=== PATIENT | male | born 1950 | race Caucasian/White ===

== ENCOUNTER → 2019-11-11 | Outpatient (CLI) | payer MEDICARE ==
[~2019-11-11] MED LIST: ALBU90OI61 INH; ASPI325EC PO; ATOR40TA PO; CARV25 PO; CARV6.25 PO; CHOL10002 PO; CLON.5 PO; CYCL10 PO; FISH1000 PO; FURO20 PO; HYDACE5; LEVO750 PO; LOSA25 PO; MULVITMIND PO; NAPR550 PO; NIAC500 PO; OXYACE5T PO; POTA10T PO; POTCHL10ER PO; PRED10 PO; Prednisone20 MG PO; RXCYCL10 PO; Ventolin Soln3 ML INH; WARF2 PO; WARF2.5; Zithromax250 MG PO
== END | disposition home or self-care (01) ==
LOC: LAB 12:00 → LAB SHORT 12:00
DX: D48.5 Neoplasm of uncertain behavior of skin (principal)
CPT/HCPCS: 88305

== ENCOUNTER 2021-07-06 07:07 | Day surgery (SDC) | payer OTHER, MEDICARE ==
[~2021-07-06] VITALS: Ht 170.2 cm; Wt 131.0 kg
[~2021-07-06 07:07] MED LIST changes: +ELIQUIS5 M2 PO; +METF500 PO
--- NOTE | 2021-07-06 10:29 | NUR ---
PT PREVIOUSLY BROUGHT BACK TO RECOVERY ROOM POST IMPLANT TO LEFT SIDE UPPER CHEST. SITE APPEARED TO BE SWOLLLEN, ICE PACK APPLIED. PT APPEARED TO BE SLEEPING WITH EYES CLOSED. DRESSING TO INCISION SITE CLEAN, DRY, AND INTACT. FAMILY BROUGHT TO BEDSIDE FOR DISCUSSION WITH [facility] FOR INSTRUCTIONS RELATED TO HOME PACEMAKER EQUIPMENT.
--- NOTE | 2021-07-06 11:30 | NUR ---
DR LEONARD TO BEDSIDE TO SPEAK WITH PATIENT ABOUT PLAN OF CARE AND DISCHARGE INSTRUCTIONS. PT VERBALIZED UNDERSTANDING. NO NEEDS AT THIS TIME. CALL LIGHT IN REACH.
--- NOTE | 2021-07-06 12:30 | NUR ---
ICE PACK PLACED BACK OVER INCISION SITE AFTER PT REPOSITIONED SELF ON GURNEY. PROVIDED WITH COFFEE, DENIES WANTING FOOD AT THIS TIME. LEFT ARM REMAINS OUT OF SLING AT THIS TIME. PACEMAKER INCISION SITE REMAINS SOFT NON TENDER WITH NO BLEEDING OR OOZING NOTED. VSS. CALL LIGHT REMAINS AT BEDSIDE.
--- NOTE | 2021-07-06 13:06 | NUR ---
CLINDAMYCIN STARTED ORDERED. PT AOX4. TOLERATES PO FLUIDS WITH NO DIFFICULTIES. DENIES PAIN. VSS. AWAITING ARRIVAL OF PT'S TO DISCUSS DISCHARGE INSTRUCTIONS. DRESSING REMAINS C/D/I OVER INCISION SITE ON LEFT UPPER CHEST. CALL LIGHT IN REACH.
--- NOTE | 2021-07-06 13:45 | NUR ---
PT DRESSED WITH ASSISTANCE, SITE UNCHANGED; IV REMOVED-CANNULA INTACT. PT'S L ARM PLACED IN SLING PER DR LEONARD.
--- NOTE | 2021-07-06 14:00 | NUR ---
PT AND RECEIVED DISCHARGE INSTRUCTIONS, MED LIST AND AFTER CARE INSTRUCTIONS; VERBALIZED GOOD UNDERSTANDING. PT LEFT FACILITY VIA W/C, CONDITION STABLE.
== END 2021-07-06 14:00 | disposition home or self-care (01) ==
LOC: MHTC 07:07
DX: I49.5 Sick sinus syndrome (principal); I48.19 Other persistent atrial fibrillation; Z79.01 Long term (current) use of anticoagulants; I10 Essential (primary) hypertension; Z85.46 Personal history of malignant neoplasm of prostate
CPT/HCPCS: 33207; 71046; 99152; 99153; C1786; C1898; J1580; J1644; J2250; J3010; J3370; J7030; J7040; Q9967

== ENCOUNTER 2022-06-15 10:35 | Inpatient (IN) | payer OTHER ==
[~2022-06-15] VITALS: Ht 170.2 cm; Wt 128.7 kg
[2022-06-15 11:23] LABS: BASOPHILS ABSOLUTE AUTO 0.04 K/mm3 (0.00-0.23); BASOPHILS PERCENT AUTO 1 % (0-2); EOSINOPHILS ABSOLUTE AUTO 0.06 K/mm3 (0.00-0.68); EOSINOPHILS PERCENT AUTO 1 % (0-6); Hematocrit 37.2 % (37.0-53.0); Hemoglobin 11.9 g/dL (13.5-17.5); IMMATURE GRAN ABSOLUTE AUTO 0.02 K/mm3 (0.00-0.10); IMMATURE GRAN PERCENT AUTO 0 % (0-1); LYMPHOCYTES ABSOLUTE AUTO 0.53 K/mm3 (0.84-5.20); LYMPHOCYTES PERCENT AUTO 6 % (21-46); MONOCYTES ABSOLUTE AUTO 1.48 K/mm3 (0.16-1.47); MONOCYTES PERCENT AUTO 18 % (4-13); Mean Corpuscular Volume 91 fL (80-100); Mean Platelet Volume 12.4 fL (9.1-12.4); NEUTROPHILS ABSOLUTE AUTO 6.34 K/mm3 (1.96-9.15); NEUTROPHILS PERCENT AUTO 75 % (41-73); Platelet Count 123 K/mm3 (150-400); RDW Coefficient Variation 14.2 % (11.7-14.2); RDW Standard Deviation 47.4 fL (35.1-46.3); White Blood Cell Count 8.47 K/mm3 (4.00-11.30)
[2022-06-15 11:40] LABS: Albumin, Blood 3.4 g/dL (3.4-5.0); Albumin/Globulin Ratio 1.1 (0.8-1.8); Bun/Creatinine Ratio 20.6 (12.0-20.0); C-REACTIVE PROTEIN, EXT RANGE 4.97 mg/dL (0.000-0.300); Calcium, Blood 9.4 mg/dL (8.5-10.1); Creatinine, Blood 1.55 mg/dL (0.60-1.20); Globulin, Blood 3.2 g/dL (2.2-4.0); Potassium, Blood 4.1 mmol/L (3.5-5.5); Total Protein, Blood 6.6 g/dL (6.4-8.2)
[2022-06-15] MEDS ORDERED: VITAMIN D5000 UNIT PO (16:32)
--- NOTE | 2022-06-15 16:35 | NUR ---
MED REC NOTE PT WILL BRING COMPLETE LIST OF MEDICATIONS INCLUDING CHEMO MEDICATIONS FROM HOME TOMORROW ON 06/16/22.
--- NOTE | 2022-06-15 18:06 | NUR ---
ADMIT/SHIFT SUMMARY PT ARRIVED TO PCU APPROX 1510 AND WAS A SLIDER TRANSFER. VSS, SPO2 MAINTIANED >95% VIA RA, HR NOTED TO BE SUSTAINING IN 120'S AND THEN INCREASED TO 120-140'S. SBP 90-100 W/ MAP 70-80'S, LR BOLUS GIVEN BY THIS RN PER EMAR ORDERS, LUNGS WERE CLEAR/DIM. SEE EMAR FOR HR MANAGEMENT. HR IS NOW AFIB SUSTAINING IN 110-120'S. PT MINA AT BEDSIDE UPON ADMISSION. PT IS BLIND IN BOTH EYES THEREFORE NEEDS ASSISTANCE FOR CERTAIN ADL'S FROM . PAIN REPORTED IN R FOOT DUE TO CELLULITIS. R PINKY TOE NOTED TO BE RED, R FOOT IS SWOLLEN, SEE CHART FOR PHOTOS. PT DENIED NEED TO ELEVATE FOOT ON PILLOW. LR NOW INFUSING PER EMAR ORDERS IN R AC. PER PT REPORT, HE IS CURRENTLY RECIEVING CHEMO TREATMENT W/ DR. JJ, LAST CHEMO DATE 06/07/2022. HE HAS REPORTED GENERALIZED WEAKNESS THAT HAS RECENTLY INCREASED DUE TO CHEMO TREATMENTS. PT DOES NOT BEAR WEIGHT ON R FOOT DUE TO PAIN. PT IS CONTINENT AND UTILIZES BEDSIDE URINAL TO VOID. WILL CONTINUE TO MONITOR UNTIL REPORT GIVEN TO ONCOMING RN.
--- NOTE | 2022-06-16 00:26 | NUR ---
PHYSICIAN COMMUNICATION CONTACTED ECLECTIC DOCTOR RESIDENT DR MCCARTHY TO INFORM HER THAT THE PATIENT IS CURRENTLY IN RAPID AFIB IN THE 120'S-140'S DESPITE RECEIVING 3 DOSES IV LOPRESSOR. RELAYED PATIENT'S MOST RECENT BLOOD PRESSURE. DR MCCARTHY TO PUT IN ORDERS.
[2022-06-16 04:10] LABS: BASOPHILS ABSOLUTE AUTO 0.04 K/mm3 (0.00-0.23); BASOPHILS PERCENT AUTO 0 % (0-2); EOSINOPHILS ABSOLUTE AUTO 0.06 K/mm3 (0.00-0.68); EOSINOPHILS PERCENT AUTO 1 % (0-6); Hematocrit 36.1 % (37.0-53.0); Hemoglobin 11.6 g/dL (13.5-17.5); IMMATURE GRAN ABSOLUTE AUTO 0.05 K/mm3 (0.00-0.10); IMMATURE GRAN PERCENT AUTO 1 % (0-1); LYMPHOCYTES ABSOLUTE AUTO 0.58 K/mm3 (0.84-5.20); LYMPHOCYTES PERCENT AUTO 6 % (21-46); MONOCYTES ABSOLUTE AUTO 1.79 K/mm3 (0.16-1.47); MONOCYTES PERCENT AUTO 18 % (4-13); Mean Corpuscular HGB 29.4 pg (26.0-34.0); Mean Corpuscular HGB Conc 32.1 g/dL (31.5-36.5); Mean Corpuscular Volume 92 fL (80-100); Mean Platelet Volume 12.4 fL (9.1-12.4); NEUTROPHILS PERCENT AUTO 74 % (41-73); Platelet Count 126 K/mm3 (150-400); RDW Coefficient Variation 14.2 % (11.7-14.2); RDW Standard Deviation 48.3 fL (35.1-46.3); Red Blood Cell Count 3.94 M/mm3 (4.30-5.90); White Blood Cell Count 9.82 K/mm3 (4.00-11.30)
[2022-06-16 04:33] LABS: Albumin, Blood 3.3 g/dL (3.4-5.0); Bilirubin, Total 2.5 mg/dL (0.1-1.0); Bun/Creatinine Ratio 20.8 (12.0-20.0); Calcium, Blood 9.6 mg/dL (8.5-10.1); Creatinine, Blood 1.44 mg/dL (0.60-1.20); Globulin, Blood 3.4 g/dL (2.2-4.0); Magnesium, Blood 1.8 mg/dL (1.6-2.4); Total Protein, Blood 6.7 g/dL (6.4-8.2)
--- NOTE | 2022-06-16 06:16 | NUR ---
SHIFT SUMMARY PATIENT ALERT AND ORIENTED X4. MEDICATED PER EMAR FOR PAIN. R FOOT CONTINUES TO BE RED WITH 2+ EDEMA PRESENT. PATIENT HAS HAD NO COMPLAINTS OF SHORTNESS OF BREATH, LUNG SOUNDS CLEAR. PATIENT HAD A 7 BEAT RUN OF V-TACH AT 2314. PATIENT STARTED ON CARDIZEM DRIP AFTER HIS HEART RATE DID NOT RESPOND TO IV METOPROLOL PUSH. HEART CURRENTLY AFIB 90'S - 100'S, CARDIZEM DRIP CURRENTLY RUNNING AT 5. BLOOD PRESSURE STABLE. WILL CONTINUE TO MONITOR. CALL LIGHT WITHIN REACH.
--- NOTE | 2022-06-16 10:01 | NUR ---
CARE ASSUMPTION This RN assumed care at 0700. vital signs stable. tele afib 100s. spo2 >95% on room air. patient is alert and oriented x4. patient reports no pain, unless touching the right foot with cellulitis. patient reports no chest pain/pressure. patient reports no shortness of breath. see shift assessment for further detials. patient uses call light appropriately to make needs known. plan of care is up to date. call light within reach.
[2022-06-16] MEDS ORDERED: CALQUENCE100 M1 PO (10:40)
[2022-06-16] MEDS ORDERED: Flomax0.4 MG PO (10:41)
[2022-06-16] MEDS ORDERED: MYRBETRIQ25 MG PO (10:42)
--- NOTE | 2022-06-16 13:03 | NUR ---
shift summary this rn gave report to cathy pollack. patient neuro remains intact. no acute changes. patient sitting in chair with family and friends at bedside. call light within reach.
--- NOTE | 2022-06-16 21:04 | NUR ---
PHYSICIAN COMMUNICATION CONTACTED DOG BREEDER RESIDENT, DR MCCARTHY, TO NOTIFY HER THAT THE PATIENT'S HEART RATE HAS BEEN AVERAGING IN THE MID 120'S ON TELE AND HAS BEEN SLOWLY TRENDING UP THE EVENING PROGRESSES. INFORMED HER THAT THE PATIENT'S BLOOD PRESSURE WAS 100 SYSTOLIC ON THE R ARM AND IN THE 80'S ON THE LEFT ARM AND THAT ACCORDING TO THE PARAMETERS OF BOTH THE PATIENT'S PO AND IV METOPROLOL THIS RN WAS CURRENTLY UNABLE TO TREAT THE PATIENT FOR HIS HEART RATE. DR MCCARTHY SAID IT WAS OKAY TO ADMINISTER THE PO METOPROLOL.
[2022-06-17 04:04] LABS: BASOPHILS ABSOLUTE AUTO 0.04 K/mm3 (0.00-0.23); BASOPHILS PERCENT AUTO 0 % (0-2); EOSINOPHILS ABSOLUTE AUTO 0.05 K/mm3 (0.00-0.68); EOSINOPHILS PERCENT AUTO 1 % (0-6); Hematocrit 31.9 % (37.0-53.0); Hemoglobin 10.4 g/dL (13.5-17.5); IMMATURE GRAN ABSOLUTE AUTO 0.04 K/mm3 (0.00-0.10); IMMATURE GRAN PERCENT AUTO 0 % (0-1); LYMPHOCYTES ABSOLUTE AUTO 0.55 K/mm3 (0.84-5.20); LYMPHOCYTES PERCENT AUTO 6 % (21-46); MONOCYTES ABSOLUTE AUTO 1.73 K/mm3 (0.16-1.47); MONOCYTES PERCENT AUTO 18 % (4-13); Mean Corpuscular HGB 29.1 pg (26.0-34.0); Mean Corpuscular HGB Conc 32.6 g/dL (31.5-36.5); Mean Corpuscular Volume 89 fL (80-100); Mean Platelet Volume 12.4 fL (9.1-12.4); NEUTROPHILS ABSOLUTE AUTO 7.23 K/mm3 (1.96-9.15); NEUTROPHILS PERCENT AUTO 75 % (41-73); Platelet Count 126 K/mm3 (150-400); RDW Coefficient Variation 14.1 % (11.7-14.2); RDW Standard Deviation 46.1 fL (35.1-46.3); Red Blood Cell Count 3.58 M/mm3 (4.30-5.90); White Blood Cell Count 9.64 K/mm3 (4.00-11.30)
[2022-06-17 04:24] LABS: Bun/Creatinine Ratio 19.9 (12.0-20.0); Calcium, Blood 9.4 mg/dL (8.5-10.1); Creatinine, Blood 1.51 mg/dL (0.60-1.20); Potassium, Blood 3.9 mmol/L (3.5-5.5)
--- NOTE | 2022-06-17 04:58 | NUR ---
PHYSICIAN COMMUNICATION CONTACTED [employer] SECRETARY RESIDENT DR MCCARTHY AND NOTIFIED HER THAT THE PATIENT'S HEART RATE IS AVERAGING AROUND 130 ON TELE AFTER RECEIVING SCHEDULED PO METOPROLOL, AND THAT THE PATIENT RECEIVED TWO DOSES IV METOPROLOL WHICH WERE INEFFECTIVE. MOST RECENT BLOOD PRESSURE 100/72. NO NEW ORDERS GIVEN, TO CONTINUE TO MONITOR THE PATIENT AND CALL BACK IF THE PATIENT'S HEART RATE STARTS SUSTAINING HIGHER.
--- NOTE | 2022-06-17 06:43 | NUR ---
SHIFT SUMMARY PATIENT ALERT AND ORIENTED X4. REDNESS AND SWELLING IN PATIENT'S RIGHT FOOT DECREASING. SPO2 >90% ON ROOM AIR, NO COMPLAINTS OF SHORTNESS OF BREATH. BLOOD PRESSURE STABLE. HEART RATE CURRENTLY AVERAGING AFIB IN THE 130'S. WILL CONTINUE TO MONITOR. CALL LIGHT WITHIN REACH.
--- NOTE | 2022-06-17 08:39 | NUR ---
CARE ASSUMPTION This RN assumed care at 0700. vital signs stable. blood pressure hypotensive. This RN called MD to inform MD of blood pressure systolic not within the parameters for the oral metoprolol this AM, per MD it was okay to give due to heart rate sustaining in the 130s. This RN informed MD that heart rate touching into the 150s and then goes back into 130s. No new orders at this time. Patient is alert and oriented x4. tele afib 130s-150s. patient has a fever this AM and received tylenol per emar. See vital signs section. patient reports no shortness of breath. patient reports no chest pain/pressure. patient reports no pain. Patient at bedside this AM. This RN updated them on plan of care and provided education on morning medications. Patient and verbalized understanding. See shift assessment for further detials. Plan of care is up to date. call light within reach. Physical therapy in to see patient and patient refused to work with therpay. This RN will encourage range of motion exercises in bed.
--- NOTE | 2022-06-17 17:42 | NUR ---
SHIFT SUMMARY Patient neuro remains intact. vital signs stable. Blood pressure soft at times. Patient received iv digoxin per emar orders for heart rate control. heart rate is anywhere from 80-110s. tele in place afib. family has been at bedside most of the day, and left this evening to go home. physical therapy worked with patient this afternoon. lift patient per physical therapy, see assessment. no acute changes. call light within reach and bed in lowest position.
[2022-06-18 04:31] LABS: Anion Gap 5 mmol/L (6-16); Blood Urea Nitrogen 31 mg/dL (8-24); Bun/Creatinine Ratio 19.6 (12.0-20.0); CO2, Blood 26 mmol/L (21-32); Calcium, Blood 9.4 mg/dL (8.5-10.1); Chloride, Blood 105 mmol/L (98-108); Creatinine, Blood 1.58 mg/dL (0.60-1.20); Digoxin (Lanoxin) 1.92 ug/mL (0.80-2.00); Glomerular Filtration Rate 46 (60-); Glucose, Blood 129 mg/dL (70-99); Potassium, Blood 4.2 mmol/L (3.5-5.5); Sodium, Blood 136 mmol/L (136-145)
--- NOTE | 2022-06-18 06:00 | NUR ---
SHIFT SUMMARY PATIENT ALERT AND ORIENTED X4. SLEPT WELL OVERNIGHT, SLEEP STUDY CONDUCTED BY RT. VITAL SIGNS STABLE. HEART RATE AFIB 90'S - 110'S. PATIENT REPORTS PAIN IS REDUCING IN RIGHT FOOT. REDNESS IS DECREASED BUT SWELLING STILL 3+. NO ACUTE ISSUES NOTED OVERNIGHT. CALL LIGHT WITHIN REACH.
--- NOTE | 2022-06-18 10:32 | NUR ---
AM NOTE: PATIENT ALERT AND ORIENTED. HISTORY OF BLINDNESS, ABLE TO SEE SHADOWS. AT BEDSIDE HELPING WITH CARES. DENIES N/T. COMPLAINS OF PAIN IN BILATERAL FEET 08/27. SHARP SHOOTING. MEDICATED PER EMAR. UP TO EDGE OF BED WITH PHYSICAL THERAPY. ATTEMPT TO STAND, BUT PATIENT STARTED HAVING SEVERE THROBBING PAIN IN FEET AND UNABLE TO STAND. ON ROOM AIR SATING 98%. NO COUGH NOTED. LUNGS SOUNDING CLEAR AND DIM. TELE SHOWING AFIB WITH HR 90-110'S. PO METOPROLOL HELD DUE TO VITAL SIGN PARAMETERS. PPP. EDEMA NOTED IN BLE/BUE. DENIES CHEST PAIN/PRESSURE/PALPITATIONS. EATING WNL. USING URINAL TO VOID. UPON VOIDING THIS MORNING PATIENT NOTICED A SMALL AMOUNT OF BLOOD AT END OF STREAM. DENIES PAIN WHEN URINATING. WILL UPDATE DR. BRUNSON. AC BLOOD SUGAR CHECKS. Q2 TURNING AND NEEDED. SLEEP STUDY PREFORMED LAST NIGHT. WILL CONTINUE TO MONITOR.
[2022-06-18 11:42] LABS: BASOPHILS ABSOLUTE AUTO 0.02 K/mm3 (0.00-0.23); BASOPHILS PERCENT AUTO 0 % (0-2); EOSINOPHILS ABSOLUTE AUTO 0.15 K/mm3 (0.00-0.68); EOSINOPHILS PERCENT AUTO 2 % (0-6); IMMATURE GRAN ABSOLUTE AUTO 0.03 K/mm3 (0.00-0.10); IMMATURE GRAN PERCENT AUTO 0 % (0-1); LYMPHOCYTES ABSOLUTE AUTO 0.49 K/mm3 (0.84-5.20); LYMPHOCYTES PERCENT AUTO 6 % (21-46); MONOCYTES ABSOLUTE AUTO 1.33 K/mm3 (0.16-1.47); MONOCYTES PERCENT AUTO 17 % (4-13); Mean Corpuscular HGB 29.1 pg (26.0-34.0); Mean Corpuscular HGB Conc 32.3 g/dL (31.5-36.5); Mean Corpuscular Volume 90 fL (80-100); Mean Platelet Volume 12.4 fL (9.1-12.4); NEUTROPHILS ABSOLUTE AUTO 5.78 K/mm3 (1.96-9.15); NEUTROPHILS PERCENT AUTO 74 % (41-73); Platelet Count 149 K/mm3 (150-400); RDW Coefficient Variation 13.8 % (11.7-14.2); RDW Standard Deviation 45.8 fL (35.1-46.3); Red Blood Cell Count 3.44 M/mm3 (4.30-5.90)
--- NOTE | 2022-06-18 14:35 | NUR ---
DR. BRUNSON BY TO SEE PATIENT. THIS RN UPDATE ON SCANT AMOUNT OF BLOOD X1 IN URINE. NO NEW ORDERS. WILL CONTINUE TO MONITOR.
--- NOTE | 2022-06-18 18:03 | NUR ---
SHIFT SUMMARY: NO ACUTE CHANGES. PATIENT SLEEPING MOST OF SHIFT. MEDICATED X1 FOR BILATERAL FEET PAIN, WORSE ON RIGHT THIS MORNING. NO TELE EVENTS. REMAINS AFIB WITH HR 80-100'S. BP STABLE. PO METOPROLOL GIVEN WITH NEW PARAMETERS PLACED BY DR. BRUNSON. REMAINS ON ROOM AIR. USING BEDPAN AND URINAL TO VOID. NO OTHER BLOOD NOTED IN URINE BESIDE THIS AM, SEE NOTE. EATING WNL. VITAL SIGNS REMAIN STABLE.
--- NOTE | 2022-06-19 07:32 | NUR ---
SHIFT SUMMARY NO ACUTE CHANGES THIS SHIFT, PT ASSISTED TO TURN AND REPOSITION T/O SHIFT WITH LIFT AND PT ASSISTED WITH SIDE TO SIDE TURNS. PT BREATHING APPEARED HEAVY AND LABORED AT TIMES, PT DENIED ANY SOB, SATS >95% ON RA. DENIED NEED FOR ANY BREATHING TX. PT USED URINAL SEVERAL TIMES DURING NIGHT WITH ASSIST. AFIB 80'S-100'S T/O SHIFT. DENIED ANY CP.
--- NOTE | 2022-06-19 09:36 | NUR ---
AM NOTE: ALERT AND ORIENTED X4. HISTORY OF BLINDNESS. THROBBING PAIN TO BILATERAL FEET, WORSE IN RIGHT THIS MORNING. RECENTLY MEDICATED FOR PAIN. PATIENT REPORTS PAIN SUBSIDING. Q2 REPOSITIONING AND ELEVATING LOWER EXTREMITIES. ON ROOM AIR SATING ABOVE 94%. DENIES SOB. MOUTH BREATHING AT TIMES WHEN SLEEPING. EVEN RESPIRATIONS. TELE SHOWING AFIB WITH HR 80-100'S. BP STABLE. DENIES CHEST PAIN/PRESSURE. PPP. EDEMA NOTED TO BLE AND BUE. MEDICAL STATUS NO TELE. EATING WNL. IN ROOM ASSISTING PATIENT WITH MEALS. NO ISSUES NOTED WHEN SWALLOWING. BOWEL TONES PRESENT. USING BEDPAN AND URINAL. NO BLOOD NOTED IN URINE THIS AM. PATIENT STATES HE HAS BEEN HAVING LOOSE STOOLS, HOLDING AM SENNA. IV ABX INFUSED. PLAN FOR CT WITHOUT CONTRAST OF RIGHT LOWER EXTREMITY. DR. BRUNSON IN THIS MORNING TO ASSESS PATIENT. ORDERS FOR MED NO TELE AND TO ELEVATE BILATERAL LOWER EXTREMITIES ON PILLOWS. ORDERS IN PLACE.
--- NOTE | 2022-06-19 14:11 | NUR ---
TRANSFER NOTE: NO ACUTE CHANGES. PATIENT REMAINS STABLE. Q2 TURNING AND ELEVATING LOWER EXTREMITIES. VITAL SIGNS STABLE. REMAINS ON ROOM AIR. MEDICAL STATUS NO TELE. REPORTED OFF TO NATALIYA TORO. NO OTHER BLOOD NOTED IN URINE. PATIENT DENIES PAIN WHEN URINATING. AC BLOOD SUGARS STABLE, NO INSULIN REQUIRED. BRUISING ON BACK REMAINS UNCHANGED. PATIENT DENIES BACK PAIN. TENDERNESS TO BILATERAL FEET. BOWEL MOVEMENT X2. USING URINAL TO VOID.
--- NOTE | 2022-06-19 18:39 | NUR ---
PT QUITE PLEASANT COOP A/O SINCE TRANSFER TO FLOOR FROM PCU. DENIES PAIN AT THIS TIME. SEVERAL FAMILY IN TO VISIT TODAY. LUNGS CLEAR, H/R IRREG. PACER. PT IN AFIB. VSS. PT CONTINUES TO BE UNABLE TO WALK OR PUT PRESSURE ON FEET. DOES CLAIM PAIN HAS IMPROVED SOME. NO NEW CONCERNS NOTED. BED IN LOW POSITION, CALL LITE IN REACH. CALLS APPROP
[2022-06-20 04:13] LABS: BASOPHILS ABSOLUTE AUTO 0.06 K/mm3 (0.00-0.23); BASOPHILS PERCENT AUTO 1 % (0-2); EOSINOPHILS ABSOLUTE AUTO 0.19 K/mm3 (0.00-0.68); EOSINOPHILS PERCENT AUTO 3 % (0-6); Hematocrit 34.3 % (37.0-53.0); Hemoglobin 11.1 g/dL (13.5-17.5); IMMATURE GRAN ABSOLUTE AUTO 0.04 K/mm3 (0.00-0.10); IMMATURE GRAN PERCENT AUTO 1 % (0-1); LYMPHOCYTES ABSOLUTE AUTO 0.53 K/mm3 (0.84-5.20); LYMPHOCYTES PERCENT AUTO 7 % (21-46); MONOCYTES ABSOLUTE AUTO 1.31 K/mm3 (0.16-1.47); MONOCYTES PERCENT AUTO 18 % (4-13); Mean Corpuscular HGB Conc 32.4 g/dL (31.5-36.5); Mean Corpuscular Volume 90 fL (80-100); NEUTROPHILS ABSOLUTE AUTO 5.18 K/mm3 (1.96-9.15); NEUTROPHILS PERCENT AUTO 71 % (41-73); Platelet Count 229 K/mm3 (150-400); RDW Coefficient Variation 13.7 % (11.7-14.2); RDW Standard Deviation 45.1 fL (35.1-46.3); Red Blood Cell Count 3.83 M/mm3 (4.30-5.90); White Blood Cell Count 7.31 K/mm3 (4.00-11.30)
[2022-06-20 04:33] LABS: Albumin, Blood 2.8 g/dL (3.4-5.0); Anion Gap 6 mmol/L (6-16); Blood Urea Nitrogen 28 mg/dL (8-24); Bun/Creatinine Ratio 20.9 (12.0-20.0); CO2, Blood 28 mmol/L (21-32); Calcium, Blood 9.6 mg/dL (8.5-10.1); Chloride, Blood 101 mmol/L (98-108); Creatinine, Blood 1.34 mg/dL (0.60-1.20); Glomerular Filtration Rate 56 (60-); Glucose, Blood 130 mg/dL (70-99); Phosphorus, Blood 2.8 mg/dL (2.5-4.9); Sodium, Blood 135 mmol/L (136-145)
--- NOTE | 2022-06-20 17:52 | NUR ---
SHIFT SUMMARY PT A&OX3 AND COOPERATIVE OF CARE. AT BEDSIDE FOR MOST OF DAY AND VERY INVOLVED IN PT'S CARE. PT WORKED WITH PHYSCIAL THERAPY AND EXERCISES ARE ON BOARD. PT SLEPT ON AND OFF T/O DAY. CALLS APPROPRIATLY. BED IN LOWEST POSITION AND CALL LIGHT IN REACH.
[2022-06-21 06:04] LABS: Albumin, Blood 2.9 g/dL (3.4-5.0); Anion Gap 3 mmol/L (6-16); Blood Urea Nitrogen 25 mg/dL (8-24); Bun/Creatinine Ratio 19.1 (12.0-20.0); CO2, Blood 30 mmol/L (21-32); Calcium, Blood 10.1 mg/dL (8.5-10.1); Chloride, Blood 102 mmol/L (98-108); Creatinine, Blood 1.31 mg/dL (0.60-1.20); Glomerular Filtration Rate 57 (60-); Glucose, Blood 115 mg/dL (70-99); Phosphorus, Blood 2.8 mg/dL (2.5-4.9); Sodium, Blood 135 mmol/L (136-145)
[2022-06-21 12:32] LABS: Hematocrit 36.3 % (37.0-53.0); Hemoglobin 11.5 g/dL (13.5-17.5); Mean Corpuscular HGB Conc 31.7 g/dL (31.5-36.5); Mean Corpuscular Volume 91 fL (80-100); Mean Platelet Volume 11.5 fL (9.1-12.4); Platelet Count 270 K/mm3 (150-400); RDW Coefficient Variation 13.7 % (11.7-14.2); RDW Standard Deviation 47.2 fL (35.1-46.3); Red Blood Cell Count 3.97 M/mm3 (4.30-5.90)
[2022-06-21 14:52] LABS: Adenovirus Not Detected (NOT DETECT); Bordetella pertussis Not Detected (NOT DETECT); Chlamydophila pneumoniae Not Detected (NOT DETECT); Coronavirus 229E Not Detected (NOT DETECT); Coronavirus HKU1 Not Detected (NOT DETECT); Coronavirus NL63 Not Detected (NOT DETECT); Coronavirus OC43 Not Detected (NOT DETECT); Human Metapneumovirus Not Detected (NOT DETECT); Human Rhinovirus/Enterovirus Not Detected (NOT DETECT); Influenza A/2009-H1 Not Detected (NOT DETECT); Influenza A/H1 Not Detected (NOT DETECT); Influenza A/H3 Not Detected (NOT DETECT); Influenza B Not Detected (NOT DETECT); Mycoplasma pneumoniae Not Detected (NOT DETECT); Parainfluenza Virus 1 Not Detected (NOT DETECT); Parainfluenza Virus 2 Not Detected (NOT DETECT); Parainfluenza Virus 3 Not Detected (NOT DETECT); Parainfluenza Virus 4 Not Detected (NOT DETECT); Respiratory Syncytial Virus Not Detected (NOT DETECT); SARS-Cov-2 (COVID-19), BioFire Not Detected (NOT DETECT)
--- NOTE | 2022-06-21 17:44 | NUR ---
SHIFT SUMMARY PT A&OX4 AND IN PLEASENT MOOD T/O SHIFT. AT BEDSIDE T/O SHIFT. VSS. CALL LIGHT W/IN REACH. BED IN LOW POSITION. PT ABLE TO WORK W/ PHYSICAL THERAPY UP TO DANGLE THIS SHIFT. BEDPAN/URINAL. LOOSE BM T/O SHIFT.
[2022-06-22 09:05] LABS: BASOPHILS ABSOLUTE AUTO 0.05 K/mm3 (0.00-0.23); BASOPHILS PERCENT AUTO 1 % (0-2); EOSINOPHILS PERCENT AUTO 3 % (0-6); Hematocrit 35.7 % (37.0-53.0); Hemoglobin 11.6 g/dL (13.5-17.5); IMMATURE GRAN ABSOLUTE AUTO 0.04 K/mm3 (0.00-0.10); IMMATURE GRAN PERCENT AUTO 1 % (0-1); LYMPHOCYTES ABSOLUTE AUTO 0.53 K/mm3 (0.84-5.20); LYMPHOCYTES PERCENT AUTO 7 % (21-46); MONOCYTES ABSOLUTE AUTO 1.16 K/mm3 (0.16-1.47); MONOCYTES PERCENT AUTO 15 % (4-13); Mean Corpuscular HGB 28.8 pg (26.0-34.0); Mean Corpuscular HGB Conc 32.5 g/dL (31.5-36.5); Mean Corpuscular Volume 89 fL (80-100); Mean Platelet Volume 11.3 fL (9.1-12.4); NEUTROPHILS ABSOLUTE AUTO 5.54 K/mm3 (1.96-9.15); NEUTROPHILS PERCENT AUTO 74 % (41-73); Platelet Count 309 K/mm3 (150-400); RDW Coefficient Variation 13.7 % (11.7-14.2); RDW Standard Deviation 45.1 fL (35.1-46.3); Red Blood Cell Count 4.03 M/mm3 (4.30-5.90); White Blood Cell Count 7.52 K/mm3 (4.00-11.30)
[2022-06-22 09:19] LABS: Albumin, Blood 3.1 g/dL (3.4-5.0); Anion Gap 7 mmol/L (6-16); Blood Urea Nitrogen 28 mg/dL (8-24); Bun/Creatinine Ratio 20.7 (12.0-20.0); CO2, Blood 29 mmol/L (21-32); Calcium, Blood 10.6 mg/dL (8.5-10.1); Chloride, Blood 103 mmol/L (98-108); Creatinine, Blood 1.35 mg/dL (0.60-1.20); Glomerular Filtration Rate 55 (60-); Glucose, Blood 121 mg/dL (70-99); Potassium, Blood 4.1 mmol/L (3.5-5.5); Sodium, Blood 139 mmol/L (136-145)
--- NOTE | 2022-06-22 18:45 | NUR ---
SHIFT SUMMARY PTN IS BLIND. PRESENT MOST OF SHIFT. PTN STAYED IN BED MOST OF DAY UNTIL 1500 WHEN HE WAS LIFTED TO THE RECLINER AND STAYED FOR REMAINDER OF SHIFT. PHYSICAL THERAPY CAME TO WORK WITH PTN, AND PTN WAS ONLY ABLE TO STAND 2-3 TIMES WITH DIFFIULTY STANDING DUE TO NO STRENGTH. FEET ARE PUFFY WITH SOME EDEMA, BUT REPORTED TO BE IMPROVED. PTN HAS POOR APPETITE, AND WITH EYESIGHT HAS DIFFICULTY EATING ON OWN, CONTINUED TO BE UNINTERESTED IN EATING MUCH WITH HELP. PTN WAS SOMNOLENT ALL OF SHIFT, BOTH IN BED AND IN RECLINER, UNTIL DINNER WHEN DAUGHTER AND GRANDSON WERE PRESENT. PTN AWAKE AND CONVERSANT, AND TOOK A FEW BITES FROM DAUGHTER. STOOL CONTINUES TO BE LOOSE. CONTINUE TO MONITOR.
[2022-06-23 05:36] LABS: Hematocrit 35.1 % (37.0-53.0); Hemoglobin 11.5 g/dL (13.5-17.5); Mean Corpuscular HGB 28.9 pg (26.0-34.0); Mean Corpuscular HGB Conc 32.8 g/dL (31.5-36.5); Mean Corpuscular Volume 88 fL (80-100); Mean Platelet Volume 11.5 fL (9.1-12.4); Platelet Count 320 K/mm3 (150-400); RDW Coefficient Variation 13.6 % (11.7-14.2); RDW Standard Deviation 43.9 fL (35.1-46.3); Red Blood Cell Count 3.98 M/mm3 (4.30-5.90); White Blood Cell Count 10.28 K/mm3 (4.00-11.30)
[2022-06-23 06:41] LABS: Albumin, Blood 2.9 g/dL (3.4-5.0); Anion Gap 8 mmol/L (6-16); Blood Urea Nitrogen 34 mg/dL (8-24); Bun/Creatinine Ratio 28.1 (12.0-20.0); CO2, Blood 26 mmol/L (21-32); Calcium, Blood 10.3 mg/dL (8.5-10.1); Chloride, Blood 104 mmol/L (98-108); Creatinine, Blood 1.21 mg/dL (0.60-1.20); Glomerular Filtration Rate 63 (60-); Glucose, Blood 140 mg/dL (70-99); Phosphorus, Blood 2.8 mg/dL (2.5-4.9); Potassium, Blood 3.8 mmol/L (3.5-5.5); Sodium, Blood 138 mmol/L (136-145)
--- NOTE | 2022-06-23 08:00 | NUR ---
pt laying in bed with eyes closed, pt is blind daughter at bedside, pt wakes easily, sat him up to take his po meds and eat a bit of breakfast a/ox2, follows commands and redirects easily, lungs are clear in upper baeza, dim in bases, resp even and unlabored, no cough noted, hrr, +1 edema noted to b/l le, ppp+1, cap refill <3 sec, vs stable, afebrile, iv site to lac is clear and patent, btx4, abd flat soft nontender, voids without diff, skin c/w/d, right foot pink, maew, legs are weak, call light in reach.
--- NOTE | 2022-06-23 18:45 | NUR ---
family has been in room all day assisting him with needs, very supportive, pt dangling on side of bed for dinner, no acute changes this shift, call light in reach.
--- NOTE | 2022-06-24 04:49 | NUR ---
SHIFT SUMMARY ADMITTED FOR RIGHT FOOT CELLULITIS. DNR CODE. PLAN IS FOR DC W/HH. ALLEGRA LIFT TO CHAIR. ADA DIET. PILLS WHOLE W/WATER. PHYSICAL THERAPY IS WORKING WITH THIS PT. AC CBG'S. VISION IS POOR. HE CAN USE A URINAL, ATTENDS IN PLACE. HE SEES DR. JJ OUTPT FOR CLL. LAST CHEMO ON 06/07/22. TAKES METFORMIN AT HOME.
[2022-06-24] MEDS ORDERED: COLCHICINE0.6 MG PO (13:14)
[2022-06-24] MEDS ORDERED: METO25ER PO (13:15)
[2022-06-24] MEDS ORDERED: PRED20 PO (13:16)
--- NOTE | 2022-06-24 14:26 | NUR ---
DISCHARGE NOTE MR CHAN WAS DISCHARGED HOME WITH HIS AT 1400HRS TODAY. VERBALISED UNDERSTANDING OF WRITTEN AND VERBAL DISCHARGE INSTRUCTIONS. PIV REMOVED. STAND PIVOT TO WHEELCHAIR AND ASSISTED INTO CAR, SAID SHE HAS FAMILY WAITING AT HOME TO HELP HIM GET INTO THE HOUSE. PT WAS ORIENTATED TO HIS OWN NAME, TO "HOSPITAL" TO JUNE 2022. HE C/O IMPROVEMENT IN PAIN TO HIS TOES 06/27, NOT REQUESTING ANY PAIN MEDS THIS SHIFT.
== END 2022-06-24 13:55 | disposition home health service (06) | DRG 602 ==
LOC: ER 10:35 → PCU 13:31 → MEDS 06-19 14:35
PROVIDERS: Emergency Medicine; Internal Medicine; Nurse Practitioner Acute Care; ADMIT Internal Medicine
DX: L03.115 Cellulitis of right lower limb (principal); I50.33 Acute on chronic diastolic (congestive) heart failure; C91.10 Chronic lymphocytic leukemia of B-cell type not having achieved remission; D84.9 Immunodeficiency, unspecified; I48.20 Chronic atrial fibrillation, unspecified; Z68.41 Body mass index [BMI] 40.0-44.9, adult; M10.9 Gout, unspecified; L03.116 Cellulitis of left lower limb; Z66 Do not resuscitate; N18.30 Chronic kidney disease, stage 3 unspecified; H54.7 Unspecified visual loss; C61 Malignant neoplasm of prostate; I95.9 Hypotension, unspecified; M54.9 Dorsalgia, unspecified; G89.29 Other chronic pain; E11.22 Type 2 diabetes mellitus with diabetic chronic kidney disease; F32.A Depression, unspecified; E86.1 Hypovolemia; I50.810 Right heart failure, unspecified; E66.01 Morbid (severe) obesity due to excess calories; D63.1 Anemia in chronic kidney disease; R31.9 Hematuria, unspecified; D69.6 Thrombocytopenia, unspecified; Z20.822 Contact with and (suspected) exposure to COVID-19; Z88.1 Allergy status to other antibiotic agents; Z79.899 Other long term (current) drug therapy; Z79.84 Long term (current) use of oral hypoglycemic drugs; Z79.01 Long term (current) use of anticoagulants; Z79.51 Long term (current) use of inhaled steroids; Z98.890 Other specified postprocedural states; Z92.21 Personal history of antineoplastic chemotherapy
CPT/HCPCS: 0202U; 36415; 73620; 73700; 80048; 80053; 80069; 80162; 82947; 83605; 83735; 83880; 84550; 85025; 85027; 85651; 86140; 87040; 93005; 93010; 94762; 96361; 96365; 97110; 97162; 97530; 99285-25; A9270; J1160; J1644; J1940; J3010; J7030; J7050; J7120; J7512

== ENCOUNTER 2023-04-04 15:26 | Inpatient (IN) | payer OTHER ==
[~2023-04-04] VITALS: Ht 170.2 cm; Wt 129.4 kg
[~2023-04-04 15:26] MED LIST changes: +CALQUENCE100 M1 PO; +COLCHICINE0.6 MG PO; +Flomax0.4 MG PO; +METO25ER PO; +MYRBETRIQ25 MG PO; +PRED20 PO; +VITAMIN D5000 UNIT PO
[2023-04-04 17:42] LABS: BASOPHILS ABSOLUTE AUTO 0.05 K/mm3 (0.00-0.23); BASOPHILS PERCENT AUTO 1 % (0-2); EOSINOPHILS PERCENT AUTO 4 % (0-6); Hematocrit 26.6 % (37.0-53.0); Hemoglobin 7.9 g/dL (13.5-17.5); IMMATURE GRAN ABSOLUTE AUTO 0.01 K/mm3 (0.00-0.10); IMMATURE GRAN PERCENT AUTO 0 % (0-1); LYMPHOCYTES ABSOLUTE AUTO 0.62 K/mm3 (0.84-5.20); LYMPHOCYTES PERCENT AUTO 12 % (21-46); MONOCYTES PERCENT AUTO 14 % (4-13); Mean Corpuscular HGB 27.1 pg (26.0-34.0); Mean Corpuscular HGB Conc 29.7 g/dL (31.5-36.5); Mean Corpuscular Volume 91 fL (80-100); Mean Platelet Volume 11.8 fL (9.1-12.4); NEUTROPHILS PERCENT AUTO 68 % (41-73); Platelet Count 198 K/mm3 (150-400); RDW Coefficient Variation 16.9 % (11.7-14.2); RDW Standard Deviation 56.8 fL (35.1-46.3); Red Blood Cell Count 2.91 M/mm3 (4.30-5.90); White Blood Cell Count 4.98 K/mm3 (4.00-11.30)
[2023-04-04 18:09] LABS: Percent Saturation 3.6 % (20.0-50.0)
[2023-04-04 18:28] LABS: Albumin, Blood 3.6 g/dL (3.4-5.0); Albumin/Globulin Ratio 1.3 (0.8-1.8); Bilirubin, Total 0.8 mg/dL (0.1-1.0); Calcium, Blood 9.5 mg/dL (8.5-10.1); Creatinine, Blood 2.14 mg/dL (0.60-1.20); Globulin, Blood 2.8 g/dL (2.2-4.0); Potassium, Blood 4.3 mmol/L (3.5-5.5); Total Protein, Blood 6.4 g/dL (6.4-8.2)
[2023-04-05 05:09] LABS: BASOPHILS ABSOLUTE AUTO 0.05 K/mm3 (0.00-0.23); BASOPHILS PERCENT AUTO 1 % (0-2); EOSINOPHILS ABSOLUTE AUTO 0.22 K/mm3 (0.00-0.68); EOSINOPHILS PERCENT AUTO 4 % (0-6); Hematocrit 25.7 % (37.0-53.0); Hemoglobin 7.8 g/dL (13.5-17.5); IMMATURE GRAN ABSOLUTE AUTO 0.02 K/mm3 (0.00-0.10); IMMATURE GRAN PERCENT AUTO 0 % (0-1); LYMPHOCYTES PERCENT AUTO 8 % (21-46); MONOCYTES PERCENT AUTO 15 % (4-13); Mean Corpuscular HGB 27.4 pg (26.0-34.0); Mean Corpuscular HGB Conc 30.4 g/dL (31.5-36.5); Mean Corpuscular Volume 90 fL (80-100); Mean Platelet Volume 12.3 fL (9.1-12.4); NEUTROPHILS ABSOLUTE AUTO 4.28 K/mm3 (1.96-9.15); NEUTROPHILS PERCENT AUTO 72 % (41-73); Platelet Count 192 K/mm3 (150-400); RDW Coefficient Variation 16.8 % (11.7-14.2); Red Blood Cell Count 2.85 M/mm3 (4.30-5.90); White Blood Cell Count 5.97 K/mm3 (4.00-11.30)
[2023-04-05 05:42] LABS: Albumin, Blood 3.5 g/dL (3.4-5.0); Albumin/Globulin Ratio 1.2 (0.8-1.8); Bilirubin, Total 0.8 mg/dL (0.1-1.0); Bun/Creatinine Ratio 21.5 (12.0-20.0); Calcium, Blood 9.2 mg/dL (8.5-10.1); Creatinine, Blood 2.14 mg/dL (0.60-1.20); Globulin, Blood 2.8 g/dL (2.2-4.0); Potassium, Blood 4.3 mmol/L (3.5-5.5); Total Protein, Blood 6.3 g/dL (6.4-8.2)
[2023-04-05 12:26] VITALS: BP 107/77
[2023-04-05 15:31] VITALS: BP 102/83
--- NOTE | 2023-04-05 17:30 | NUR ---
SHIFT SUMMARY PT IS A&OX4, CALLS APPROPRIATELY, AND CAN MAKE HIS NEEDS KNOWN. THE PT IS BLIND IN BILATERAL EYES. HIS CALL LIGHT DOES HAVE A UPPER LINING CEMENTER IT SO HE CAN CALL FOR HIS NEEDS. HE HAS BEEN AFIB 90'S-110'S ON TELE W/O ANY C/O OF ANGINA OR CHEST PRESSURE. SP02 >95% ON RA, AND THE PT HAS DENIED ANY SOB. HIS MINA HAS BEEN AT THE BEDSIDE AND HAS BEEN UPDATED ON HIS CARE. SHE HELPS WITH PT CARE. THE PT IS A 1P ASSIST THE THE CHAIR AN BSC. HE DOES HAVE A WOUND ON HIS RIGHT BIG TOE THAT HAS BEEN REDRESSED. HE HAS THE TOE NAIL REMOVED OUT PT 04/04. HE IS NOW MEDICAL STATUS W/ TELE. PER. DR. WASHBURN, I CALLED THE ECHO TECHS AND ASKED FOR THE RESULTS OF THE ECHO ON 04/03. THEY FOWARDED TO THE [facility] SALES ADVISOR TO BE READ. SEE NOTES FOR ANY MORE UPDATES.
[2023-04-05 19:38] VITALS: BP 102/67
[2023-04-06] VITALS (7 sets, daily range): BP systolic 100–109; BP diastolic 52–79
--- NOTE | 2023-04-06 04:36 | NUR ---
SHIFT SUMMARY. PT HAS BEEN DOING WELL THIS SHIFT, NO ACUTE CHANGES. AOX4, PLEASANT, COOPERATIVE WITH CARE. ALL I+Os CHARTED PER PROTOCOL. FLUID RESTRICTION MAINTAINED WITHOUT DIFFICULTY, PT TOLERATING WELL. TELE ON THROUGHOUT SHIFT RUNNING AIFB WITH NO EVENTS THUS FAR. PT HAS NOT REPORTED ANY PAIN THUS FAR THIS SHIFT. PT USES CALL LIGHT APPROPRIATELY AND IS ABLE TO MAKE NEEDS KNOWN WHEN PROMPTED. HAS BEEN ABLE TO SLEEP THROUGH MOST OF SHIFT THUS FAR. BED LOCKED IN LOWEST POSITION. CALL LIGHT LEFT WITHIN REACH. CONTINUING TO MONITOR.
[2023-04-06 05:27] LABS: Hematocrit 26.9 % (37.0-53.0); Hemoglobin 7.9 g/dL (13.5-17.5)
[2023-04-06 06:01] LABS: Magnesium, Blood 2.4 mg/dL (1.6-2.4)
[2023-04-06 06:02] LABS: Albumin, Blood 3.5 g/dL (3.4-5.0); Anion Gap 6 mmol/L (6-16); Blood Urea Nitrogen 49 mg/dL (8-24); Bun/Creatinine Ratio 22.2 (12.0-20.0); CO2, Blood 29 mmol/L (21-32); Calcium, Blood 9.4 mg/dL (8.5-10.1); Chloride, Blood 104 mmol/L (98-108); Creatinine, Blood 2.21 mg/dL (0.60-1.20); Glomerular Filtration Rate 30 (60-); Glucose, Blood 128 mg/dL (70-99); Phosphorus, Blood 3.9 mg/dL (2.5-4.9); Potassium, Blood 4.3 mmol/L (3.5-5.5); Sodium, Blood 139 mmol/L (136-145)
--- NOTE | 2023-04-06 16:38 | NUR ---
SHIFT SUMMARY THE PT HAS BEEN A&OX4, CAN MAKE HIS NEEDS KNOWN, HAS HIS A THE BEDSIDE WHO HELPS WITH CARE, AND HE HAS HAD NO ACUTE EVENTS THIS SHIFT. HE IS LEGALLY BLIND SO HE CALL LIGHT HAS BEEN MODIFIED WITH A TELE STICKER SO HE CAN FEEL WHERE THE CALL BUTTON IS LOCATED. HE HAS BEEN ON RA ALL DAY W/ SP02 >90%. ON TELE HE HAS BEEN AFIB 90'S-110'S. W/ ACTIVITY HIS HR HAS TOUCHED UP TO 140'S BT HE HAS NOT SUSTAINED. THE PT HAS DENIED ANY DISCOMFORTS. HE HAS BEEN ACHS, ON A FLUID RESTRICTION. SEE NOTES FOR ANY UPDATES.
--- NOTE | 2023-04-06 18:23 | NUR ---
DR. HAMMER CAME TO EVALUATE THE PT. HE STATED WE SHOULD LEAVE THE PT'S THUMB IS. HE DOES NOT RECOMMENED A BRACE OR SPLINT BECAUSE IT WOULD CAUSE STIFFINING OF THE THUMB.
[2023-04-07] VITALS (18 sets, daily range): BP systolic 90–128; BP diastolic 53–81
--- NOTE | 2023-04-07 03:50 | NUR ---
BP ON MORNING VITALS WAS BORDERLINE. CALLED TO NOTIFY RESIDENT DR. BERRY. DR. BERRY ENCOURAGED TO MONITOR BP, ALLOW PT TO FINISH OUT DAILY FLUID RESTRICTION, AND GO FROM THERE. NO CHANGE IN PT CONDITION. IF BP DOES CONTINUE TO DECREASE WE MAY DO ONE TIME MEDICATION OTHERWISE WILL ALLOW DAYSHIFT TO HANDLE MEDICATION MANAGEMENT. WILL ENCOURAGE PO FLUID INTAKE WITHIN RESTRICTION PARAMETER AND GO FROM THERE. CONTINUING TO MONITOR.
--- NOTE | 2023-04-07 04:10 | NUR ---
PT HAD 10 BEAT RUN OF VTACH AT ~0408. NO CHANGE IN PT CONDITION. PT HAS MORNING LABS ORDERED INCLUDING RENAL FUNCTION PANEL AND MAGNESIUM LAB. WILL AWAIT RESULTS FROM THESE LABS AND NOTIFY SHOULD THEY PROVE OUTSIDE OF NORMAL LIMITS. CONTINUING TO MONITOR.
--- NOTE | 2023-04-07 04:26 | NUR ---
SHIFT SUMMARY. PT HAS BEEN DOING WELL THIS SHIFT, NO ACUTE CHANGES. REMAINS AOX4, PLEASANT, COOPERATIVE WITH CARE. 1500 ML FLUID RESTRICTION REMAINS IN PLACE AND PT HAS ADHERED TO THIS WELL WITH NO COMPLAINTS. ALL I+Os CHARTED PER PROTOCOL. BP HAS BEEN SOMEWHAT SOFT THROUGHOUT SHIFT, MORESO ON MORNING VITALS SEE RELATED NOTE FOR DETAILS. TELE ON THROUGHOUT SHIFT RUNNING AFIB WITH ONE 10 BEAT RUN OF VTACH RECENTLY THIS MORNING,SEE RELATED NOTE FOR DETAILS. PT COMPLAINED OF SOME MILD TENDERNESS AT LAC, SITE OF PREVIOUSLY PULLED IV ON DAY SHIFT. SITE TENDER, RED, MILDLY WARM. NO STREAKING, ONLY VERY MILDLY SWOLLEN. OFFERED PO TYLENOL FOR MANAGEMENT OF PAIN BUT PT DENIED NEED AND HAS BEEN ABLE TO REST COMFORTABLY SINCE. CONTINUING TO MONITOR SITE. PT USES CALL LIGHT APPROPRIATELY, ABLE TO MAKE NEEDS KNOWN, AND HAS BEEN COMPLETELY COOPERATIVE WITH CARE. BED LOCKED IN LOWEST POSITION. CALL LIGHT LEFT WITHIN REACH. CONTINUING TO MONITOR.
[2023-04-07 05:55] LABS: BASOPHILS ABSOLUTE AUTO 0.03 K/mm3 (0.00-0.23); BASOPHILS PERCENT AUTO 0 % (0-2); EOSINOPHILS ABSOLUTE AUTO 0.12 K/mm3 (0.00-0.68); EOSINOPHILS PERCENT AUTO 2 % (0-6); Hematocrit 25.4 % (37.0-53.0); Hemoglobin 7.6 g/dL (13.5-17.5); IMMATURE GRAN ABSOLUTE AUTO 0.03 K/mm3 (0.00-0.10); IMMATURE GRAN PERCENT AUTO 0 % (0-1); LYMPHOCYTES ABSOLUTE AUTO 0.53 K/mm3 (0.84-5.20); LYMPHOCYTES PERCENT AUTO 8 % (21-46); MONOCYTES ABSOLUTE AUTO 1.29 K/mm3 (0.16-1.47); MONOCYTES PERCENT AUTO 19 % (4-13); Mean Corpuscular HGB 26.7 pg (26.0-34.0); Mean Corpuscular HGB Conc 29.9 g/dL (31.5-36.5); Mean Corpuscular Volume 89 fL (80-100); Mean Platelet Volume 11.8 fL (9.1-12.4); NEUTROPHILS ABSOLUTE AUTO 4.81 K/mm3 (1.96-9.15); NEUTROPHILS PERCENT AUTO 71 % (41-73); Platelet Count 198 K/mm3 (150-400); RDW Coefficient Variation 17.2 % (11.7-14.2); RDW Standard Deviation 56.3 fL (35.1-46.3); Red Blood Cell Count 2.85 M/mm3 (4.30-5.90); White Blood Cell Count 6.81 K/mm3 (4.00-11.30)
[2023-04-07 06:16] LABS: Albumin, Blood 3.2 g/dL (3.4-5.0); Anion Gap 5 mmol/L (6-16); Blood Urea Nitrogen 45 mg/dL (8-24); Bun/Creatinine Ratio 20.5 (12.0-20.0); CO2, Blood 30 mmol/L (21-32); Calcium, Blood 9.3 mg/dL (8.5-10.1); Chloride, Blood 104 mmol/L (98-108); Creatinine, Blood 2.19 mg/dL (0.60-1.20); Glomerular Filtration Rate 31 (60-); Glucose, Blood 126 mg/dL (70-99); Magnesium, Blood 2.3 mg/dL (1.6-2.4); Phosphorus, Blood 3.3 mg/dL (2.5-4.9); Potassium, Blood 3.9 mmol/L (3.5-5.5); Sodium, Blood 139 mmol/L (136-145)
--- NOTE | 2023-04-07 09:25 | NUR ---
WOUND DRESSING APPLIED TO RIGHT GREAT TOE PER ORDERS
--- NOTE | 2023-04-07 09:53 | NUR ---
contacted md due to soft bp's and pt scheduled to recieve lasix and metoprolol. md instructed this rn to hold both meds for the moment and md will come see pt to give further instructions.
--- NOTE | 2023-04-07 11:31 | NUR ---
ASSUMPTION OF CARE THIS RN ASSUMED CARE OF PT AT 0700. PT A/OX4 AND COOPERATIVE OF CARE. PT ABLE TO EXPRESS NEEDS AND CALLS APPROPIATELY. PT PRESENT AND HELPS WITH CARE. PT EXPRESSED THAT HE "FEELS BETTER" TO WHEN COMPARED TO YESTERDAY. PT REMAINED AFIB WITH RATES 80-100 WHILE AT REST. PT HR TO 110-120'S WITH EXERTION. NO REPORT OF CHEST PAIN/PRESSURE AT THIS TIME. PT BP'S SOFT, NOTIFIED. NO REPORT OF N/V. PT ABLE TO TOLERATE MEALS. PT REPORTS GI "SEEMS TO BE FINE." NO REPORT OF SOB. SATS STABLE IN THE 90'S ON RA.
--- NOTE | 2023-04-07 17:56 | NUR ---
SHIFT SUMMARY PT A/OX4 AND COOPERATIVE OF CARE. PT EXPRESSES NEEDS WELL AND CALLS APPROPIATELY. REMAINED IN ROOM AND ASSISTED PT THROUGHOUT DAY. PT BP'S HAVE BEEN ON THE SOFT SIDE WITH SBP'S 90-100'S, MD AWARE AND MEDS ADJUSTED. OTHER VSS THROUGHOUT SHIFT WITH O2 SATS IN THE 90'S ON RA. NO REPOR TOF CHEST PAIN/PRESSURE. PT REPORTS THT HIS BREATHING HAS IMPROVED. PT EDUCATED ON SAFETY RELATED TO HIS BLINDNESS, PT RECEPTIVE. PT EXPRESSED DISCOMFORT TO HIS LEFT A/C WHERE HIS OLD IV WAS REMOVED. SITE WAR TO TOUCH AND EXTREMELY TENDER. PHOTOS TAKEN WITH PERMISSION. THIS RN ATTEMPTED TO INFORM MD, NO ANSWER. WILL FORWARD INFO TO ONCOMING RN.
--- NOTE | 2023-04-07 21:00 | NUR ---
UPDATE: CALL PLACED TO MD BERRY REGARDING LAC IV INFILTRATION SITE FROM 04/06. PER DAY SHIFT RN REPORT, SITE HAS WORSENED T/O DAY. TENDER W/ ERYTHEMA PRESENT. SITE REMAINS OUTLINED FROM DAY SHIFT. MD BERRY TO BEDSIDE TO ASSESS. SITE COMPARED TO DAY SHIFT PHOTOS IN CHART & NEW PHOTOS TAKEN FOR CHART. VERBAL ORDERS RECEIVED TO ADMINISTER TYLENOL PER EMAR FOR PAIN, APPLY ICE/HEAT BASED ON PT PREFERENCE, AND ELEVATE EXTREMITY.
[2023-04-08 03:29] VITALS: BP 93/64
--- NOTE | 2023-04-08 04:56 | NUR ---
END OF SHIFT NOTE: NO ACUTE EVENTS OVERNIGHT. PT HAS REMAINED ALERT, ORIENTED X4. ABLE TO CALL APPROPRIATELY AND COMMUNICATE NEEDS W/ STAFF. HAS REMAINED AT BEDSIDE ASSISTING PT OVERNIGHT. BP HAS BEEN SOFT W/ SBP 90'S. MAP HAS CONSISTENTLY BEEN >65. PM METOPROLOL HELD DUE TO BP PARAMETERS. PT DENIES CHEST PAIN/PRESSURE. HR 80-110'S, AFIB ON TELE. SPO2 >93% ON RA WHILE AWAKE, ON 2L VIA NC WHILE SLEEPING D/T FREQUENT DESATS. AFEBRILE. LAC IV INFILTRATION SITE REMAINS UNCHANGED OVERNIGHT, SEE PREVIOUS NOTE. ABLE TO USE URINAL AT BEDSIDE W/ SPOUSE ASSISTANCE. NO OTHER NEEDS AT THIS TIME. CALL LIGHT IN REACH, BED IN LOWEST POSITION. WILL REPORT TO ONCOMING RN.
[2023-04-08 06:41] LABS: Anion Gap 5 mmol/L (6-16); Blood Urea Nitrogen 43 mg/dL (8-24); Bun/Creatinine Ratio 19.6 (12.0-20.0); CO2, Blood 30 mmol/L (21-32); Calcium, Blood 8.9 mg/dL (8.5-10.1); Chloride, Blood 104 mmol/L (98-108); Creatinine, Blood 2.19 mg/dL (0.60-1.20); Glomerular Filtration Rate 31 (60-); Glucose, Blood 122 mg/dL (70-99); Magnesium, Blood 2.2 mg/dL (1.6-2.4); Phosphorus, Blood 3.3 mg/dL (2.5-4.9); Potassium, Blood 3.6 mmol/L (3.5-5.5); Sodium, Blood 139 mmol/L (136-145)
[2023-04-08 06:59] LABS: Stool Occult Blood Guaiac 1 Neg (Neg)
[2023-04-08 08:05] VITALS: BP 83/68
[2023-04-08 08:51] VITALS: BP 102/63
[2023-04-08 11:43] VITALS: BP 105/69
[2023-04-08 15:50] VITALS: BP 104/49
--- NOTE | 2023-04-08 18:37 | NUR ---
SHIFT SUMMARY PT A/OX 4 AND COOPERATIVE OF CARE. PT ABLE TO EXPRESS NEEDS, PRESNET FOR MOST OF SHIFT AND HELPED PT. PT BP'S CONTINUE TO RUN SOFT, MD AWARE AND MADE SOME ADJUSTMENTS TO MEDS. OTHER VSS THROUGHOUT WITH O2 SATS IN THE 90'S ON RA, NO REPORT OF SOB/DYSPNEA. PT REPORTS THAT HIS BREATHING "FEELS ABOUT NORMAL." NO REPORT OF CHEST PAIN/PRESSURE THROUGHOUT SHIFT. PT UP TO CHAIR MULTIPLE TIMES DURING SHIFT, SBA, TOLERATED WELL. ICE PACKS APPLIED TO LEFT A/C IV SITE PER MD REQUEST, PT REORTS MINIMAL RELIEF. DRESSING TO R GREAT TOE CHANGED AT 1745, DRESSING APPLIED PER ORDER.
[2023-04-08 20:05] VITALS: BP 106/72
[2023-04-09 03:38] VITALS: BP 89/58
[2023-04-09 04:19] LABS: BASOPHILS ABSOLUTE AUTO 0.04 K/mm3 (0.00-0.23); BASOPHILS PERCENT AUTO 1 % (0-2); EOSINOPHILS ABSOLUTE AUTO 0.21 K/mm3 (0.00-0.68); EOSINOPHILS PERCENT AUTO 3 % (0-6); Hematocrit 24.9 % (37.0-53.0); Hemoglobin 7.4 g/dL (13.5-17.5); IMMATURE GRAN ABSOLUTE AUTO 0.03 K/mm3 (0.00-0.10); IMMATURE GRAN PERCENT AUTO 1 % (0-1); LYMPHOCYTES ABSOLUTE AUTO 0.58 K/mm3 (0.84-5.20); LYMPHOCYTES PERCENT AUTO 9 % (21-46); MONOCYTES ABSOLUTE AUTO 1.39 K/mm3 (0.16-1.47); MONOCYTES PERCENT AUTO 21 % (4-13); Mean Corpuscular HGB 26.8 pg (26.0-34.0); Mean Corpuscular HGB Conc 29.7 g/dL (31.5-36.5); Mean Corpuscular Volume 90 fL (80-100); Mean Platelet Volume 11.9 fL (9.1-12.4); NEUTROPHILS ABSOLUTE AUTO 4.41 K/mm3 (1.96-9.15); NEUTROPHILS PERCENT AUTO 66 % (41-73); Platelet Count 186 K/mm3 (150-400); RDW Coefficient Variation 17.3 % (11.7-14.2); RDW Standard Deviation 55.9 fL (35.1-46.3); Red Blood Cell Count 2.76 M/mm3 (4.30-5.90); White Blood Cell Count 6.66 K/mm3 (4.00-11.30)
[2023-04-09 04:47] LABS: Anion Gap 5 mmol/L (6-16); Blood Urea Nitrogen 43 mg/dL (8-24); Bun/Creatinine Ratio 21.2 (12.0-20.0); CO2, Blood 30 mmol/L (21-32); Chloride, Blood 104 mmol/L (98-108); Creatinine, Blood 2.03 mg/dL (0.60-1.20); Glomerular Filtration Rate 34 (60-); Glucose, Blood 130 mg/dL (70-99); Phosphorus, Blood 3.5 mg/dL (2.5-4.9); Sodium, Blood 139 mmol/L (136-145)
--- NOTE | 2023-04-09 05:55 | NUR ---
END OF SHIFT NOTE: NO ACUTE EVENTS OVERNIGHT. PT ABLE TO SLEEP MOST OF THE NIGHT, MOVING BETWEEN BED AND RECLINER. ALERT, ORIENTED X4. HR 80-100'S, AFIB ON TELE. SBP 80-100'S, MAP >65. DENIES CHEST PAIN/PRESSURE. SPO2 >95% ON RA WHILE AWAKE, 2L O2 NC WHILE ASLEEP DUE TO INTERMITTENT EPISODES OF DESATURATION. AFEBRILE. LAC IV SITE REMAINS RED, WARM TO THE TOUCH. TENDER ON PALPATION. NO DRAINAGE NOTED AT THIS TIME. CLINDAMYCIN ADMINISTERED PER EMAR, ICE PACKS APPLIED TO SITE PER ORDERS. PT HAS DONE WELL W/ 1500ML FLUID RESTRICTION OVERNIGHT W/ VERY MINIMAL INTAKE. ABLE TO VOID IN URINAL W/ ASSISTANCE FROM SPOUSE. NO OTHER NEEDS AT THIS TIME, PT CONTINUES TO EXPRESS THAT HE IS ANXIOUSLY AWAITING DISCHARGE HOME. CALL LIGHT IN REACH, BED IN LOWEST POSITION. WILL REPORT TO ONCOMING RN.
[2023-04-09 07:12] VITALS: BP 104/68
--- NOTE | 2023-04-09 07:30 | NUR ---
NURSING PCU DAYSHIFT: Assumed care of pt at approx 0700. A/O, very pleasant, cooperative w/care. Currently sitting OOB in recliner. C/O 7-10/27 pain in LAC r/t infiltrated IV site, area red and inflamed, warm to touch, outer edges marked. Chronic sight deficit, able to see shadows, requires assistance w/ADL's, ambulates using FWW. Tele in place, afib, HR 110-120, SBP 104 prior to a.m. meds, no c/o CP/pressure, 2+ BLE edema. L/S fairly cta though diminished bases w/minimal fine crackles, denies dyspnea, O2 sat 98% on RA, uses 2L NC during periods of rest d/t apnea per rpt, continuous O2 monitoring in place. Abd obese, BT+, voiding w/o difficulty per pt. PIV x1, s/l. No s/s of acute distress this a.m. S/O at bedside assisting w/ADL's. Plan of care discussed, pt and s/o deny any current questions. Educated on deep breathing exercises, verbalized and demonstrated understanding. Awaiting rounding from PMD, call light in reach, cont to monitor for changes.
[2023-04-09] MEDS ORDERED: Cleocin HCl150 MG PO (11:05)
[2023-04-09] MEDS ORDERED: MIRALAX1714 PO (11:06)
[2023-04-09] MEDS ORDERED: MELATONIN PO (11:06)
[2023-04-09] MEDS ORDERED: TORSE20 PO (11:07)
[2023-04-09] MEDS ORDERED: PROBIOTIC1 EA13 PO (11:07)
[2023-04-09 11:32] VITALS: BP 94/58
--- NOTE | 2023-04-09 11:46 | NUR ---
NURSING PCU DISCHARGE SUMMARY: Pt continued to do well t/o the a.m. In shower w/spouse assist, R great toe washed w/warm soap/water and antibiotic ointment/new dressing placed. Seen by PMD, discharge home d/o received. Rx[facility] per pt request. Pt and s/o verbalized understanding of all written and verbal discharge intructions. PIV dc'd w/cath intact by PCT, escorted from unit via w/c at approx 1145 accompanied by and PCT.
== END 2023-04-09 11:47 | disposition home or self-care (01) | DRG 280 ==
LOC: ER 15:26 → ERHOLD 15:27 → PCU 04-05 12:06
PROVIDERS: Family Medicine; Internal Medicine; Student in an Organized Health Care Education/Training Program; ADMIT Student in an Organized Health Care Education/Training Program
DX: I13.0 Hypertensive heart and chronic kidney disease with heart failure and stage 1 through stage 4 chronic kidney disease, or unspecified chronic kidney disease (principal); I21.A1 Myocardial infarction type 2; I50.43 Acute on chronic combined systolic (congestive) and diastolic (congestive) heart failure; I48.20 Chronic atrial fibrillation, unspecified; N17.9 Acute kidney failure, unspecified; Z68.42 Body mass index [BMI] 45.0-49.9, adult; C91.10 Chronic lymphocytic leukemia of B-cell type not having achieved remission; I47.20 Ventricular tachycardia, unspecified; D50.9 Iron deficiency anemia, unspecified; D63.1 Anemia in chronic kidney disease; N18.30 Chronic kidney disease, stage 3 unspecified; I27.20 Pulmonary hypertension, unspecified; E11.22 Type 2 diabetes mellitus with diabetic chronic kidney disease; K59.00 Constipation, unspecified; G47.00 Insomnia, unspecified; M54.9 Dorsalgia, unspecified; N40.0 Benign prostatic hyperplasia without lower urinary tract symptoms; G89.29 Other chronic pain; F10.90 Alcohol use, unspecified, uncomplicated; M10.9 Gout, unspecified; E66.01 Morbid (severe) obesity due to excess calories; Z79.01 Long term (current) use of anticoagulants; Z95.0 Presence of cardiac pacemaker; Z79.84 Long term (current) use of oral hypoglycemic drugs; Z79.899 Other long term (current) drug therapy; Z88.8 Allergy status to other drugs, medicaments and biological substances; Z85.46 Personal history of malignant neoplasm of prostate; Z98.890 Other specified postprocedural states
CPT/HCPCS: 36415; 36416; 71046; 80053; 80069; 82272; 82947; 83036; 83540; 83550; 83735; 83880; 84484; 85014; 85018; 85025; 93005; 93010; 96374; 96376; 97116; 97162; 99285-25; A9270; G0378; J1940; J2916

== ENCOUNTER 2023-04-17 10:58 | Inpatient (IN) | payer OTHER ==
[~2023-04-17] VITALS: Ht 170.2 cm; Wt 124.1 kg
[~2023-04-17 10:58] MED LIST changes: +Cleocin HCl150 MG PO; +MIRALAX1714 PO; +Melatonin5 MG PO; +PROBIOTIC1 EA13 PO; +TORSE20 PO
[2023-04-17 11:45] LABS: BASOPHILS ABSOLUTE AUTO 0.05 K/mm3 (0.00-0.23); BASOPHILS PERCENT AUTO 1 % (0-2); EOSINOPHILS ABSOLUTE AUTO 0.03 K/mm3 (0.00-0.68); EOSINOPHILS PERCENT AUTO 0 % (0-6); Hematocrit 31.4 % (37.0-53.0); Hemoglobin 9.4 g/dL (13.5-17.5); IMMATURE GRAN ABSOLUTE AUTO 0.07 K/mm3 (0.00-0.10); IMMATURE GRAN PERCENT AUTO 1 % (0-1); LYMPHOCYTES ABSOLUTE AUTO 0.43 K/mm3 (0.84-5.20); LYMPHOCYTES PERCENT AUTO 5 % (21-46); MONOCYTES ABSOLUTE AUTO 1.42 K/mm3 (0.16-1.47); MONOCYTES PERCENT AUTO 15 % (4-13); Mean Corpuscular HGB 26.6 pg (26.0-34.0); Mean Corpuscular HGB Conc 29.9 g/dL (31.5-36.5); Mean Corpuscular Volume 89 fL (80-100); Mean Platelet Volume 12.4 fL (9.1-12.4); NEUTROPHILS ABSOLUTE AUTO 7.65 K/mm3 (1.96-9.15); NEUTROPHILS PERCENT AUTO 79 % (41-73); Platelet Count 196 K/mm3 (150-400); RDW Coefficient Variation 18.7 % (11.7-14.2); RDW Standard Deviation 61.2 fL (35.1-46.3); Red Blood Cell Count 3.54 M/mm3 (4.30-5.90); White Blood Cell Count 9.65 K/mm3 (4.00-11.30)
[2023-04-17] MEDS ORDERED: Diltiazem HCl 5 MG / ML 5ML Vial IV ONE (11:45)
[2023-04-17 12:02] LABS: Albumin, Blood 3.3 g/dL (3.4-5.0); Albumin/Globulin Ratio 0.8 (0.8-1.8); Bilirubin, Total 1.3 mg/dL (0.1-1.0); Calcium, Blood 9.6 mg/dL (8.5-10.1); Creatinine, Blood 1.61 mg/dL (0.60-1.20); Globulin, Blood 3.9 g/dL (2.2-4.0); Total Protein, Blood 7.2 g/dL (6.4-8.2)
[2023-04-17 12:09] LABS: BAND PERCENT MAN 1 % (0-8); BASOPHILS PERCENT MAN 0 % (0-2); EOSINOPHILS ABSOLUTE MAN 0.09 K/mm3 (0.00-0.68); EOSINOPHILS PERCENT MAN 1 % (0-6); LYMPHOCYTES ABSOLUTE MAN 0.19 K/mm3 (0.84-5.20); LYMPHOCYTES PERCENT MAN 2 % (21-46); MONOCYTES ABSOLUTE MAN 0.77 K/mm3 (0.16-1.47); MONOCYTES PERCENT MAN 8 % (4-13); NEUTROPHILS ABSOLUTE MAN 8.58 K/mm3 (1.96-9.15); SEG NEUTROPHILS PERCENT MAN 88 % (41-73); TOTAL CELLS COUNTED 100
[2023-04-17] MEDS ORDERED: BUME2 PO (13:06)
[2023-04-17] MEDS ORDERED: FLU VACC QS2023-24(6MOS UP)/PF 60 MCG/0.5 ML SYRINGE IM SCH (14:40)
[2023-04-17] MEDS ORDERED: Acetaminophen 325 MG TABLET PO PRN (14:40)
[2023-04-17] MEDS ORDERED: Melatonin 5 MG Tablet PO PRN (14:45)
[2023-04-17] MEDS ORDERED: dilTIAZem HCL 125 MG in Dextrose 5% 100 ML IV SCH (14:45)
[2023-04-17] MEDS ORDERED: Albuterol HFA200 ACT/6.7 GM INH INH PRN (15:00)
[2023-04-17] MEDS ORDERED: Insulin Regular 100 UNIT/ML 10ML Vial SC SCH (16:30)
[2023-04-17 17:03] VITALS: BP 127/78
[2023-04-17 17:15] VITALS: BP 112/75
[2023-04-17 17:30] VITALS: BP 94/80
[2023-04-17] MEDS ORDERED: Piperacillin/Tazobactam Sod 3.375 GM in NS 50 ML IV SCH (18:00)
[2023-04-17 20:02] VITALS: BP 108/68
[2023-04-17] MEDS ORDERED: Metoprolol Succinate 25 MG TABCR PO SCH (21:00)
[2023-04-17] MEDS ORDERED: ACALABRUTINIB MALEATE 100 MG PO SCH (21:00)
[2023-04-17] MEDS ORDERED: Tamsulosin HCl 0.4 MG Cap PO SCH (21:00)
[2023-04-17] MEDS ORDERED: Apixaban 5 MG Tab PO SCH (21:00)
[2023-04-17] MEDS ORDERED: Lactobacil 2-S.Thermo-Bifido 1 1 Cap PO SCH (21:00)
[2023-04-17 23:26] VITALS: BP 102/63
[2023-04-18] VITALS (14 sets, daily range): BP systolic 93–130; BP diastolic 61–79
[2023-04-18 04:22] LABS: BASOPHILS ABSOLUTE AUTO 0.03 K/mm3 (0.00-0.23); BASOPHILS PERCENT AUTO 0 % (0-2); EOSINOPHILS ABSOLUTE AUTO 0.05 K/mm3 (0.00-0.68); EOSINOPHILS PERCENT AUTO 0 % (0-6); Hematocrit 30.7 % (37.0-53.0); Hemoglobin 9.2 g/dL (13.5-17.5); IMMATURE GRAN ABSOLUTE AUTO 0.08 K/mm3 (0.00-0.10); IMMATURE GRAN PERCENT AUTO 1 % (0-1); LYMPHOCYTES ABSOLUTE AUTO 0.43 K/mm3 (0.84-5.20); LYMPHOCYTES PERCENT AUTO 4 % (21-46); MONOCYTES ABSOLUTE AUTO 1.62 K/mm3 (0.16-1.47); MONOCYTES PERCENT AUTO 14 % (4-13); Mean Corpuscular HGB 26.4 pg (26.0-34.0); Mean Corpuscular Volume 88 fL (80-100); Mean Platelet Volume 12.7 fL (9.1-12.4); NEUTROPHILS ABSOLUTE AUTO 9.28 K/mm3 (1.96-9.15); NEUTROPHILS PERCENT AUTO 81 % (41-73); Platelet Count 178 K/mm3 (150-400); RDW Coefficient Variation 19.1 % (11.7-14.2); RDW Standard Deviation 61.2 fL (35.1-46.3); Red Blood Cell Count 3.49 M/mm3 (4.30-5.90); White Blood Cell Count 11.49 K/mm3 (4.00-11.30)
[2023-04-18 04:54] LABS: Bun/Creatinine Ratio 12.9 (12.0-20.0); Calcium, Blood 9.6 mg/dL (8.5-10.1); Creatinine, Blood 1.78 mg/dL (0.60-1.20); Potassium, Blood 4.1 mmol/L (3.5-5.5)
[2023-04-18] MEDS ORDERED: Trospium Chloride 20 MG Tab PO SCH (06:00)
[2023-04-18] MEDS ORDERED: Cholecalciferol 1000 Unit Tablet (=25MCG) PO SCH (09:00)
[2023-04-18] MEDS ORDERED: Potassium Chloride 10 Meq Tablet SA PO SCH (09:00)
[2023-04-18] MEDS ORDERED: Furosemide 10 MG/ML 4ML Vial IV SCH (09:00)
[2023-04-18 09:46] LABS: Influenza A, PCR NEGATIVE (NEGATIVE); Influenza B, PCR NEGATIVE (NEGATIVE); Resp Syncytial Virus, PCR NEGATIVE (NEGATIVE); SARS-Cov-2 (COVID-19) PCR, MMC NEGATIVE (NEGATIVE)
[2023-04-18] MEDS ORDERED: HYDROcodone 5-APAP 325 TAB PO ONE (22:00)
[2023-04-19] VITALS (31 sets, daily range): BP systolic 95–144; BP diastolic 57–103
[2023-04-19 04:45] LABS: BASOPHILS ABSOLUTE AUTO 0.05 K/mm3 (0.00-0.23); BASOPHILS PERCENT AUTO 0 % (0-2); EOSINOPHILS ABSOLUTE AUTO 0.04 K/mm3 (0.00-0.68); EOSINOPHILS PERCENT AUTO 0 % (0-6); Hematocrit 29.6 % (37.0-53.0); Hemoglobin 8.8 g/dL (13.5-17.5); IMMATURE GRAN ABSOLUTE AUTO 0.12 K/mm3 (0.00-0.10); IMMATURE GRAN PERCENT AUTO 1 % (0-1); LYMPHOCYTES ABSOLUTE AUTO 0.38 K/mm3 (0.84-5.20); LYMPHOCYTES PERCENT AUTO 3 % (21-46); MONOCYTES PERCENT AUTO 13 % (4-13); Mean Corpuscular HGB 26.1 pg (26.0-34.0); Mean Corpuscular HGB Conc 29.7 g/dL (31.5-36.5); Mean Corpuscular Volume 88 fL (80-100); Mean Platelet Volume 12.5 fL (9.1-12.4); NEUTROPHILS ABSOLUTE AUTO 11.01 K/mm3 (1.96-9.15); NEUTROPHILS PERCENT AUTO 83 % (41-73); Platelet Count 210 K/mm3 (150-400); RDW Coefficient Variation 19.1 % (11.7-14.2); RDW Standard Deviation 61.9 fL (35.1-46.3); Red Blood Cell Count 3.37 M/mm3 (4.30-5.90)
[2023-04-19 05:15] LABS: Bun/Creatinine Ratio 13.8 (12.0-20.0); Calcium, Blood 9.1 mg/dL (8.5-10.1); Creatinine, Blood 1.89 mg/dL (0.60-1.20); Potassium, Blood 3.6 mmol/L (3.5-5.5)
[2023-04-19] MEDS ORDERED: Metoprolol Tartrate 25 MG Tab PO SCH (09:00)
[2023-04-20] VITALS (7 sets, daily range): BP systolic 104–125; BP diastolic 56–98
[2023-04-20 04:41] LABS: BASOPHILS ABSOLUTE AUTO 0.07 K/mm3 (0.00-0.23); BASOPHILS PERCENT AUTO 1 % (0-2); EOSINOPHILS ABSOLUTE AUTO 0.02 K/mm3 (0.00-0.68); EOSINOPHILS PERCENT AUTO 0 % (0-6); Hematocrit 30.7 % (37.0-53.0); Hemoglobin 9.4 g/dL (13.5-17.5); IMMATURE GRAN ABSOLUTE AUTO 0.08 K/mm3 (0.00-0.10); IMMATURE GRAN PERCENT AUTO 1 % (0-1); LYMPHOCYTES ABSOLUTE AUTO 0.41 K/mm3 (0.84-5.20); LYMPHOCYTES PERCENT AUTO 3 % (21-46); MONOCYTES ABSOLUTE AUTO 1.64 K/mm3 (0.16-1.47); MONOCYTES PERCENT AUTO 12 % (4-13); Mean Corpuscular HGB 26.3 pg (26.0-34.0); Mean Corpuscular HGB Conc 30.6 g/dL (31.5-36.5); Mean Corpuscular Volume 86 fL (80-100); Mean Platelet Volume 12.5 fL (9.1-12.4); NEUTROPHILS ABSOLUTE AUTO 11.52 K/mm3 (1.96-9.15); NEUTROPHILS PERCENT AUTO 84 % (41-73); Platelet Count 230 K/mm3 (150-400); RDW Coefficient Variation 19.3 % (11.7-14.2); RDW Standard Deviation 60.2 fL (35.1-46.3); Red Blood Cell Count 3.58 M/mm3 (4.30-5.90); White Blood Cell Count 13.74 K/mm3 (4.00-11.30)
[2023-04-20 05:16] LABS: Bun/Creatinine Ratio 15.9 (12.0-20.0); Calcium, Blood 9.3 mg/dL (8.5-10.1); Creatinine, Blood 2.01 mg/dL (0.60-1.20); Potassium, Blood 3.6 mmol/L (3.5-5.5)
[2023-04-20 09:14] LABS: Bicarbonate Venous 26.5 mmol/L (24.0-30.0); PCO2 Venous 38.4 mmHg (38-42); pH Blood Venous 7.45 (7.34-7.37)
[2023-04-20 17:28] LABS: Source, Urine Clean Catch
[2023-04-20 17:39] LABS: Appearance, Urine Clear (Clear); Bilirubin, Urine Neg (Neg); Blood, Urine 1+ (Neg); Color, Urine Yellow (P-Yellow); Glucose Qualitative, Urine Neg (Neg); Ketones, Urine Neg (Neg); Leukocyte Esterase, Urine Neg (Neg); Nitrite, Urine Neg (Neg); Protein, Urine 2+ (Neg); Specific Gravity, Urine 1.015 (1.003-1.022); Urobilinogen, Urine NORM (Normal)
[2023-04-20 18:05] LABS: Amorphous Light (0-Heavy); Bacteria Few /hpf; White Blood Cells, Urine 0-2 /hpf (0-5)
[2023-04-20 18:06] LABS: Renal Epithelial Rare /hpf (0-Rare); Squamous Epithelial Cells Rare /hpf (Few)
[2023-04-21 00:10] VITALS: BP 122/75
[2023-04-21 03:56] VITALS: BP 118/76
[2023-04-21 05:16] LABS: BASOPHILS ABSOLUTE AUTO 0.05 K/mm3 (0.00-0.23); BASOPHILS PERCENT AUTO 0 % (0-2); EOSINOPHILS ABSOLUTE AUTO 0.04 K/mm3 (0.00-0.68); EOSINOPHILS PERCENT AUTO 0 % (0-6); Hematocrit 29.3 % (37.0-53.0); Hemoglobin 8.9 g/dL (13.5-17.5); IMMATURE GRAN ABSOLUTE AUTO 0.08 K/mm3 (0.00-0.10); IMMATURE GRAN PERCENT AUTO 1 % (0-1); LYMPHOCYTES ABSOLUTE AUTO 0.34 K/mm3 (0.84-5.20); LYMPHOCYTES PERCENT AUTO 3 % (21-46); MONOCYTES ABSOLUTE AUTO 1.43 K/mm3 (0.16-1.47); MONOCYTES PERCENT AUTO 12 % (4-13); Mean Corpuscular HGB 25.9 pg (26.0-34.0); Mean Corpuscular HGB Conc 30.4 g/dL (31.5-36.5); Mean Corpuscular Volume 85 fL (80-100); Mean Platelet Volume 12.9 fL (9.1-12.4); NEUTROPHILS PERCENT AUTO 84 % (41-73); Platelet Count 258 K/mm3 (150-400); RDW Coefficient Variation 19.7 % (11.7-14.2); RDW Standard Deviation 60.9 fL (35.1-46.3); Red Blood Cell Count 3.44 M/mm3 (4.30-5.90); White Blood Cell Count 11.74 K/mm3 (4.00-11.30)
[2023-04-21 05:34] LABS: Calcium, Blood 9.3 mg/dL (8.5-10.1); Creatinine, Blood 1.89 mg/dL (0.60-1.20); Potassium, Blood 3.6 mmol/L (3.5-5.5)
[2023-04-21 08:08] VITALS: BP 143/72
[2023-04-21] MEDS ORDERED: Metoprolol Tartrate 25 MG Tab PO ONE (08:20)
[2023-04-21] MEDS ORDERED: Metoprolol Tartrate 50 MG Tab PO SCH (09:00)
[2023-04-21 11:09] VITALS: BP 116/72
[2023-04-21] MEDS ORDERED: Piperacillin/Tazobactam Sod 3.375 GM in NS 50 ML IV SCH (13:00)
[2023-04-21] MEDS ORDERED: Acetaminophen 650 MG Supp PR PRN (15:55)
[2023-04-21] MEDS ORDERED: Atropine Sulfate 1% Opth Soln 2ML BTL SL PRN (15:55)
[2023-04-21] MEDS ORDERED: Scopolamine Hydrobromide Patch TOP PRN (15:55)
[2023-04-21] MEDS ORDERED: Morphine Sulfate 20 MG/1ML 1 ML Oral Syringe SL PRN (16:00)
[2023-04-21] MEDS ORDERED: LORazepam 1 MG Tab PO PRN (16:00)
[2023-04-21 16:13] VITALS: BP 116/72
[2023-04-22] MEDS ORDERED: LORazepam 2 MG/ML 1ML Injection IV PRN (14:30)
== END 2023-04-22 23:50 | DRG 602 ==
LOC: ER 10:58 → PCU 10:59 → ERHOLD 10:59 → PCU 17:26 → MEDS 04-21 22:17
PROVIDERS: Emergency Medicine; ADMIT Family Medicine
DX: L03.115 Cellulitis of right lower limb (principal); I50.33 Acute on chronic diastolic (congestive) heart failure; N17.9 Acute kidney failure, unspecified; C91.10 Chronic lymphocytic leukemia of B-cell type not having achieved remission; I13.0 Hypertensive heart and chronic kidney disease with heart failure and stage 1 through stage 4 chronic kidney disease, or unspecified chronic kidney disease; Z68.42 Body mass index [BMI] 45.0-49.9, adult; Z51.5 Encounter for palliative care; Z66 Do not resuscitate; I48.91 Unspecified atrial fibrillation; E11.22 Type 2 diabetes mellitus with diabetic chronic kidney disease; N18.30 Chronic kidney disease, stage 3 unspecified; I27.20 Pulmonary hypertension, unspecified; G47.30 Sleep apnea, unspecified; I36.1 Nonrheumatic tricuspid (valve) insufficiency; N40.0 Benign prostatic hyperplasia without lower urinary tract symptoms; E66.9 Obesity, unspecified; L03.116 Cellulitis of left lower limb; G47.00 Insomnia, unspecified; R53.81 Other malaise; Z88.1 Allergy status to other antibiotic agents; Z85.46 Personal history of malignant neoplasm of prostate; Z79.01 Long term (current) use of anticoagulants; Z11.52 Encounter for screening for COVID-19
CPT/HCPCS: 0241U; 36415; 71045; 76770; 80048; 80053; 81001; 82803; 82947; 83880; 84145; 85025; 87040; 93005; 93010; 93970; 94660; 94760; 94762; 96365; 96366; 96368; 96374; 96375; 96376; 97162; 97530; 99284-25; A9270; G0378; J1815; J1940; J2060; J2543